=== PATIENT | male | born 1980 | race Caucasian/White ===

== ENCOUNTER 2020-08-12 20:03 | Emergency (ER) | payer BC ==
[~2020-08-12] VITALS: Ht 165.1 cm; Wt 68.9 kg
--- NOTE | 2020-08-12 20:10 | NUR ---
TO ER BED 12 AMBULATORY C/O GENERALIZED BODY PAIN, ABDOMINAL PAIN X1 DAY. DENIES N/V/D. PT AAOX4, NO ACUTE DISTRESS NOTED, RESP EVEN AND UNLABORED. PENDING ER MD AT BEDSIDE TO [facility] PT.
[2020-08-12 20:54] LABS: BASOPHILS % (AUTO) 0.6 % (0.0-2.0); EOSINOPHILS % (AUTO) 0.2 % (0.0-6.0); HEMATOCRIT 41 % (39-51); LYMPHOCYTES # (AUTO) 0.5 /CMM (0.8-4.8); LYMPHOCYTES % (AUTO) 6.8 % (20.0-44.0); MEAN CORPUSCULAR HGB CONC 34 g/dl (31.0-36.0); MEAN CORPUSCULAR VOLUME 99 fL (80-96); MONOCYTES # (AUTO) 0.5 /CMM (0.1-1.30); MONOCYTES % (AUTO) 6.2 % (2.0-12.0); NEUTROPHILS # (AUTO) 6.3 /CMM (1.8-8.9); NEUTROPHILS % (AUTO) 86.2 % (43.0-81.0); PLATELET COUNT (AUTO) 241 /CMM (150-450); RED BLOOD CELL COUNT(AUTO) 4.12 MIL/uL (4.5-6.0); WHITE BLOOD COUNT (AUTO) 7.3 K/uL (4.3-11.0)
[2020-08-12] MEDS ORDERED: ONDANSETRON HCL/PF 4 MG/2 ML VIAL ONE (21:02)
[2020-08-12] MEDS ORDERED: ACETAMINOPHEN ES 500 MG TABLET ONE (21:02)
[2020-08-12 21:03] LABS: CALCIUM, SERUM 8.1 mg/dL (8.5-10.1); CREATININE 0.9 mg/dL (0.6-1.3); POTASSIUM 4.1 mmol/L (3.5-5.1)
[2020-08-12] MEDS: IV NS 0.9% 1,000 ML BAG IV ONE (21:05)
[2020-08-12] MEDS: ONDANSETRON HCL/PF 4 MG/2 ML VIAL IVP ONE (21:06)
[2020-08-12 21:09] LABS: ALBUMIN 3.7 g/dL (3.4-5.0); BILIRUBIN,DIRECT 0.1 mg/dL (0.0-0.2); BILIRUBIN,TOTAL 0.8 mg/dL (0.2-1.0); TOTAL PROTEIN, SERUM 7.9 g/dL (6.4-8.2)
[2020-08-12] MEDS: ACETAMINOPHEN ES 500 MG TABLET PO ONE (21:09)
--- NOTE | 2020-08-12 21:09 | NUR ---
COVID SWABBED AND INF, SENT TO LAB.
--- NOTE | 2020-08-12 21:51 | NUR ---
CALL FROM LAB. RAPID COVID NEGATIVE.
--- NOTE | 2020-08-12 21:54 | NUR ---
URINE COLLECTED, SENT TO LAB.
[2020-08-12 21:56] LABS: BILIRUBIN,URINE Negative (NEGATIVE); COLOR,URINE YELLOW (YELLOW); LEUKOCYTE ESTERASE ,URINE Negative (NEGATIVE); NITRITE, URINE Negative (NEGATIVE); PH,URINE 5.5 (5.0-8.0); PROTEIN,URINE Negative (NEGATIVE); UGLUCOSE Negative (NEGATIVE); UROBILINOGEN,URINE 0.2 EU/dL (0.2)
[2020-08-12] MEDS ORDERED: ONDA4TAB5 PO (22:00)
[2020-08-12] MEDS ORDERED: TRAM50TA2 PO (22:00)
[2020-08-12 22:11] VITALS: BP 121/67
--- NOTE | 2020-08-12 22:11 | NUR ---
IV removed. Catheter intact and site benign. Pressure and 4x4 applied to site. No bleeding noted. Patient discharged to home in stable condition. Written and verbal after care instructions given. Patient verbalizes understanding of instruction and RX. Pt ambulated out of ED. VSS.
[2020-08-12 22:12] LABS: BACTERIA,URINE Rare /HPF (None Seen); SQUAMOUS EPITHELIAL CELL,UR Few /HPF (None Seen); WBC,URINE NONE SEEN /HPF (0-3)
== END 2020-08-12 22:12 | disposition home or self-care (01) ==
LOC: ER 20:18
DX: R10.9 Unspecified abdominal pain (principal); R11.0 Nausea; Z20.822 Contact with and (suspected) exposure to COVID-19; R52 Pain, unspecified
CPT/HCPCS: 36415; 71045; 76705; 80048; 80076; 81001; 83690; 85025; 87426; 87804; 96361; 96374; 99285; C9803; J2405; J7030

== ENCOUNTER 2021-03-09 07:38 | Emergency (ER) | payer BC ==
[~2021-03-09] VITALS: Ht 170.2 cm; Wt 68.0 kg
[~2021-03-09 07:38] MED LIST: ONDA4TAB5 PO; TRAM50TA2 PO
--- NOTE | 2021-03-09 07:50 | NUR ---
PT CAME TO ER C/O UPPER ABDOMINAL PAIN RADIATING UP TO HIS THROAT SINCE YESTERDAY. +NAUSEA, DIAPHORESIS, DIARRHEA, FEELING BLOATED AFTER EATING. DENIES VOMITING, FEVER. HX GERD, HIV+. A&OX4, AMBULATORY, PULSES 2+ BILATERALLY, UPPER EXTREMITIES COLD TO TOUCH. ON MONITOR, VITALS ARE STABLE.
[2021-03-09] MEDS ORDERED: KETOROLAC TROMETHAMINE 15 MG/ML VIAL ONE (07:58)
[2021-03-09] MEDS ORDERED: PANTOPRAZOLE 40 MG VIAL ONE (07:59)
[2021-03-09] MEDS ORDERED: ONDANSETRON HCL/PF 4 MG/2 ML VIAL ONE (07:59)
[2021-03-09] MEDS ORDERED: IV NS 0.9% 1,000 ML BAG IV ONE (08:00)
[2021-03-09] MEDS ORDERED: PANTOPRAZOLE 40 MG VIAL IV ONE (08:00)
[2021-03-09] MEDS ORDERED: KETOROLAC TROMETHAMINE INJ 30 MG/ML VIAL IV ONE (08:00)
[2021-03-09] MEDS ORDERED: ONDANSETRON HCL/PF 4 MG/2 ML VIAL IVP ONE (08:00)
--- NOTE | 2021-03-09 08:09 | NUR ---
BLOOD SAMPLE OBTAINED AND SENT TO LAB
--- NOTE | 2021-03-09 08:13 | NUR ---
ULTRASOND AT BEDSIDE
[2021-03-09 08:39] LABS: BASOPHILS % (AUTO) 0.5 % (0.0-2.0); EOSINOPHILS % (AUTO) 1.3 % (0.0-6.0); HEMATOCRIT 42 % (39-51); LYMPHOCYTES # (AUTO) 0.9 K/uL (0.8-4.8); LYMPHOCYTES % (AUTO) 19.2 % (20.0-44.0); MEAN CORPUSCULAR HGB CONC 34 g/dl (31.0-36.0); MEAN CORPUSCULAR VOLUME 100 fL (80-96); MONOCYTES # (AUTO) 0.4 K/uL (0.1-1.30); MONOCYTES % (AUTO) 9.3 % (2.0-12.0); NEUTROPHILS # (AUTO) 3.3 K/uL (1.8-8.9); NEUTROPHILS % (AUTO) 69.7 % (43.0-81.0); PLATELET COUNT (AUTO) 275 K/uL (150-450); RED BLOOD CELL COUNT(AUTO) 4.16 MIL/uL (4.5-6.0); WHITE BLOOD COUNT (AUTO) 4.8 K/uL (4.3-11.0)
[2021-03-09 08:54] LABS: ALBUMIN 4.1 g/dL (3.4-5.0); BILIRUBIN,DIRECT 0.1 mg/dL (0.0-0.2); BILIRUBIN,TOTAL 0.4 mg/dL (0.2-1.0); CALCIUM, SERUM 8.2 mg/dL (8.5-10.1); POTASSIUM 3.8 mmol/L (3.5-5.1); TOTAL PROTEIN, SERUM 8.8 g/dL (6.4-8.2)
[2021-03-09] MEDS ORDERED: HYDR-3972 PO (09:05)
[2021-03-09] MEDS ORDERED: ONDA4TAB5 PO (09:05)
[2021-03-09 09:13] LABS: BILIRUBIN,URINE Negative (NEGATIVE); COLOR,URINE YELLOW (YELLOW); LEUKOCYTE ESTERASE ,URINE Negative (NEGATIVE); NITRITE, URINE Negative (NEGATIVE); PH,URINE 5.5 (5.0-8.0); PROTEIN,URINE Negative (NEGATIVE); UGLUCOSE Negative (NEGATIVE); UROBILINOGEN,URINE 0.2 EU/dL (0.2)
--- NOTE | 2021-03-09 09:30 | NUR ---
Patient discharged to home in stable condition. Written and verbal after care instructions given. Patient verbalizes understanding of instruction.
--- NOTE | 2021-03-09 09:30 | NUR ---
IV removed. Catheter intact and site benign. Pressure and 4x4 applied to site. No bleeding noted.
[2021-03-09 09:43] VITALS: BP 121/87
[2021-03-09 09:51] LABS: BACTERIA,URINE Rare /HPF (None Seen); RBC,URINE 0-2 /HPF (0-2); WBC,URINE 0-2 /HPF (0-3)
[2021-03-09 09:52] LABS: SQUAMOUS EPITHELIAL CELL,UR Rare /HPF (None Seen); URINE AMORPHOUS URATE Many /HPF (None Seen)
== END 2021-03-09 09:34 | disposition home or self-care (01) ==
LOC: ER 07:40
DX: R10.13 Epigastric pain (principal); K85.90 Acute pancreatitis without necrosis or infection, unspecified; I10 Essential (primary) hypertension; Z79.899 Other long term (current) drug therapy
CPT/HCPCS: 36415; 76700; 80048; 80076; 81001; 83690; 85025; 96361; 96374; 96375; 99284; C9113; J1885; J2405; J7030

== ENCOUNTER 2022-03-31 04:05 | Emergency (ER) | payer BC ==
[~2022-03-31] VITALS: Ht 170.2 cm; Wt 65.8 kg
[~2022-03-31 04:05] MED LIST changes: +HYDR-3972 PO
--- NOTE | 2022-03-31 04:27 | NUR ---
BIBSELF FROM HOME C/O ABD PAIN X1 WEEK, AND DIARRHEA X2 DAYS. PT A/OX4. TOLERATING R/A WELL WITH NO SOB. SAFETY MEASURES IN PLACE.
--- NOTE | 2022-03-31 04:35 | NUR ---
URINE COLLECTED AND SENT TO LAB
--- NOTE | 2022-03-31 04:51 | NUR ---
IV RAC #18G S/L; PATENT AND INTACT. BLOOD COLLECTED AND SENT TO LAB
[2022-03-31] MEDS: IV NS 0.9% 1,000 ML BAG IV ONE (04:54)
[2022-03-31] MEDS ORDERED: MORPHINE SULFATE INJ 4 MG/ML DISP.SYRIN ONE (04:55)
[2022-03-31] MEDS ORDERED: ONDANSETRON HCL/PF 4 MG/2 ML VIAL ONE (04:55)
--- NOTE | 2022-03-31 04:55 | NUR ---
PT TAKEN TO CT VIA LUCIO
[2022-03-31 05:03] LABS: BASOPHILS % (AUTO) 0.1 % (0.0-2.0); HEMATOCRIT 39 % (39-51); HEMOGLOBIN 13.1 g/dL (13.5-17.5); LYMPHOCYTES # (AUTO) 1.4 K/uL (0.8-4.8); LYMPHOCYTES % (AUTO) 24.8 % (20.0-44.0); MEAN CORPUSCULAR HGB CONC 33 g/dl (31.0-36.0); MEAN CORPUSCULAR VOLUME 100 fL (80-96); MONOCYTES # (AUTO) 0.6 K/uL (0.1-1.30); MONOCYTES % (AUTO) 11.6 % (2.0-12.0); NEUTROPHILS # (AUTO) 3.5 K/uL (1.8-8.9); NEUTROPHILS % (AUTO) 63.5 % (43.0-81.0); PLATELET COUNT (AUTO) 243 K/uL (150-450); RED BLOOD CELL COUNT(AUTO) 3.93 MIL/uL (4.5-6.0); WHITE BLOOD COUNT (AUTO) 5.6 K/uL (4.3-11.0)
--- NOTE | 2022-03-31 05:07 | NUR ---
PT RETURNED TO ER BED [address]
[2022-03-31 05:10] LABS: CALCIUM, SERUM 8.7 mg/dL (8.5-10.1)
[2022-03-31] MEDS: MORPHINE SULFATE INJ 2 MG/ML DISP.SYRIN IV ONE (05:11)
[2022-03-31] MEDS: ONDANSETRON HCL/PF 4 MG/2 ML VIAL IVP ONE (05:11)
[2022-03-31 05:16] LABS: ALBUMIN 3.8 g/dL (3.4-5.0); BILIRUBIN,DIRECT 0.1 mg/dL (0.0-0.2); BILIRUBIN,TOTAL 0.6 mg/dL (0.2-1.0); TOTAL PROTEIN, SERUM 8.8 g/dL (6.4-8.2)
[2022-03-31] MEDS ORDERED: METR-147 PO (07:00)
[2022-03-31] MEDS ORDERED: CIPR500T5 PO (07:00)
[2022-03-31] MEDS ORDERED: KETO10TA2 PO (07:00)
[2022-03-31 07:09] VITALS: BP 124/78
--- NOTE | 2022-03-31 07:09 | NUR ---
IV CANNULA REMOVED
--- NOTE | 2022-03-31 07:09 | NUR ---
Patient discharged to home in stable condition. Written and verbal after care instructions given. Patient verbalizes understanding of instruction.
== END 2022-03-31 07:09 | disposition home or self-care (01) ==
LOC: ER 04:07
DX: R10.84 Generalized abdominal pain (principal); I10 Essential (primary) hypertension; Z60.2 Problems related to living alone; Z79.899 Other long term (current) drug therapy
CPT/HCPCS: 99284; 96374; 96361; 96375; 74176; 85025; 80048; 83690; 80076; 36415; 80320; J2270; J2405; J7030; G0480